=== PATIENT | male | born 1975 | race Caucasian/White ===

== ENCOUNTER 2019-07-16 12:21 | Emergency (ER) | payer BC ==
[2019-07-16 13:08] VITALS: BP 115/76
--- NOTE | 2019-07-16 13:26 | UC ---
Minor Trauma HPI - HPI Summary HPI Summary: Pt presents with c/o low back, coccyx pain s/p falling from standing height last evening while walking down stairs. Pt denies LOC, or ETOH use. Pt states he slipped on top step and then fell onto buttocks and went down 9 steps. Pt c/ o right elbow abrasion and mild pain and low back and coccyx pain that worsens with sitting. - History of Current Complaint Chief Complaint: UCBackPain Stated Complaint: S/P FALL RIGHT ELBOW/TAILBONE LOWER BACK Time Seen by Provider: 07/16/19 12:55 Hx Obtained From: Patient Onset/Duration: Sudden Onset, Still Present Onset Of Pain: Post Accident Severity Initially: Mild Severity Currently: Moderate Pain Intensity: 8 Mechanism Of Injury: Fall From A Standing Position Aggravating Factor(s): Ambulation, Movement, Other: - sitting Alleviating Factor(s): Rest Associated Signs And Symptoms: Positive: Ecchymosis - Risk Factors Penetrating Injury Risk Factors: Negative Compartment Syndrome Risk Factors: Pain - Allergies/Home Medications Allergies/Adverse Reactions: Allergies Allergy/AdvReac Type Severity Reaction Status Date / Time metformin Allergy Severe lactic Verified 07/16/19 12:50 acidosis Home Medications: Home Medications Canagliflozin (NF) [Invokana (NF)] 300 mg PO DAILY 07/16/19 [History Confirmed 07/16/19] Insulin Aspart PEN(NF) [Novolog Flexpen 100 UNITS/ML 3 ML x 5 CART] 0 unit SUBCUT ACHS 07/16/19 [History Confirmed 07/16/19] Insulin Degludec [Tresiba Flextouch 100 units/ml x 3 Pens] 40 unit SC BEDTIME [History Confirmed 07/16/19] Nortriptyline CAP* [Pamelor CAP*] 10 mg PO BEDTIME 07/16/19 [History Confirmed 07/16/19] SUMAtriptan [Imitrex] 5 mg NA PRN 07/16/19 [History] Verapamil TAB* [Calan TAB*] 80 mg PO DAILY 07/16/19 [History Confirmed 07/16/19] PMH/Surg Hx/FS Hx/Imm Hx - Additional Past Medical History Additional PMH: Hx of migraine Previously Healthy: Yes Endocrine History: Diabetes Cardiovascular History: Cardiac Disease - Surgical History Surgical History: Yes Surgery Procedure, Year, and Place: oral surgery - Family History Known Family History: Positive: Cardiac Disease - Social History Occupation: Employed Full-time Lives: With Family Alcohol Use: Rare Substance Use Type: None Smoking Status (MU): Never Smoked Tobacco Have You Smoked in the Last Year: No - Immunization History Vaccination Up to Date: Yes Review of Systems All Other Systems Reviewed And Are Negative: Yes Constitutional: Positive: Negative Skin: Positive: Bruising Eyes: Positive: Negative ENT: Positive: Negative Respiratory: Positive: Negative Cardiovascular: Positive: Negative Gastrointestinal: Positive: Negative Genitourinary: Positive: Negative Motor: Positive: Decreased ROM - sacrum coccyx Neurovascular: Positive: Negative Musculoskeletal: Positive: Arthralgia, Myalgia Neurological: Positive: Negative Psychological: Positive: Negative Is Patient Immunocompromised?: No Physical Exam Triage Information Reviewed: Yes Appearance: Pain Distress Vital Signs: Initial Vital Signs Temp 98.2 F 07/16/19 12:58 Pulse 88 07/16/19 12:58 Resp 18 07/16/19 12:58 BP 115/76 07/16/19 12:58 Pulse Ox 98 07/16/19 12:58 Vital Signs Reviewed: Yes Eye Exam: Normal ENT: Positive: Hearing grossly normal Dental Exam: Normal Neck exam: Normal Respiratory: Positive: No respiratory distress Musculoskeletal: Positive: Other: - c/o pain sacrum coccyx, no bruising appreciated Neurological Exam: Normal Psychological Exam: Normal Skin Exam: Normal - superficial abrasion right elbow. Diagnostics - Radiology No standard instances Radiology Interpretation Completed By: ED Physician - internet not working, unable to see xray. Minor Trauma Course/Dx - Differential Dx/Diagnosis Differential Diagnosis/HQI/PQRI: Contusion(s), Fracture Provider Diagnosis: Coccyx contusion, Abrasion of left elbow Discharge ED - Sign-Out/Discharge Documenting (check all that apply): Patient Departure All imaging exams completed and their final reports reviewed: No - Discharge Plan Condition: Stable Disposition: HOME Patient Education Materials: Coccyx Injury (ED), Safe Use of NSAIDs (ED) Forms: *Work Release Referrals: [facility] [Outside] - If Needed Fito Silver MD [Medical Doctor] - If Needed No Primary Care Phys,NOPCP [Primary Care Provider] - - Billing Disposition and Condition Condition: STABLE Disposition: Home
--- NOTE | 2019-07-16 15:26 | UC ---
- Progress Note Progress Note: negative for fracture no changes - Results/Orders Results/Orders: Negative for fracture Course/Dx - Diagnoses Provider Diagnoses: Coccyx contusion, Abrasion of left elbow Discharge ED - Sign-Out/Discharge Documenting (check all that apply): Patient Departure, Post-Discharge Follow Up All imaging exams completed and their final reports reviewed: Yes - Discharge Plan Condition: Stable Disposition: HOME Patient Education Materials: Coccyx Injury (ED), Safe Use of NSAIDs (ED) Forms: *Work Release Referrals: [facility] [place] [facility] [Outside] - If Needed Fito Silver MD [Medical Doctor] - If Needed No Primary Care Phys,NOPCP [Primary Care Provider] - - Billing Disposition and Condition Condition: STABLE Disposition: Home
== END 2019-07-16 13:56 | disposition home or self-care (01) ==
LOC: EDSEX → UCCORT 12:21
DX: S30.0XXA Contusion of lower back and pelvis, initial encounter (principal); S50.312A Abrasion of left elbow, initial encounter; E11.9 Type 2 diabetes mellitus without complications; I25.10 Atherosclerotic heart disease of native coronary artery without angina pectoris; Z88.8 Allergy status to other drugs, medicaments and biological substances; Z79.4 Long term (current) use of insulin; W10.9XXA Fall (on) (from) unspecified stairs and steps, initial encounter; Y93.01 Activity, walking, marching and hiking; Y92.9 Unspecified place or not applicable
CPT/HCPCS: 72220; 99201; G0463